=== PATIENT | female | born 1985 | race Caucasian/White ===

== ENCOUNTER 2019-10-26 01:50 | Inpatient (IN) | payer BC ==
[2019-10-26] MEDS ORDERED: CARBOPROST TROMETHAMINE 250 MCG/ML 1 ML AMP IM PRN (02:09)
[2019-10-26] MEDS ORDERED: OXYTOCIN 10 UNIT/ML 1 ML VIAL IM PRN (02:09)
[2019-10-26] MEDS ORDERED: LIDOCAINE 0.5% (PF) 5 MG/ML (50 ML SDV) SQ PRN (02:09)
[2019-10-26] MEDS ORDERED: METHYLERGONOVINE 0.2 MG/ML 1 ML AMP IM PRN (02:09)
[2019-10-26] MEDS ORDERED: TERBUTALINE 1 MG/ML VIAL SQ PRN (02:09)
[2019-10-26] MEDS ORDERED: LACTATED RINGERS 1,000 ML IV SCH (02:15)
[2019-10-26] MEDS ORDERED: OXYTOCIN 30 UNITS/500 ML NS 30 UNIT in SALINE 1 500ML.BAG IV SCH (02:15)
[2019-10-26 02:16] LABS: Basophils # (A) 0.1 k/uL (0-0.2); Basophils % (A) 0 %; Eosinophils # (A) 0.2 k/uL (0-0.7); Eosinophils % (A) 1 %; HCT 44.6 % (34.0-46.0); HGB 14.7 gm/dL (11.4-16.0); Lymphocytes # (A) 2.9 k/uL (1.0-4.8); Lymphocytes % (A) 17 %; MCHC 32.9 g/dL (31.0-37.0); MCV 88.2 fL (80.0-100.0); Mean Platelet Volume 7.1; Monocytes # (A) 0.7 k/uL (0-1.0); Monocytes % (A) 4 %; Neutrophils # (A) 12.6 k/uL (1.3-7.7); Neutrophils % (A) 75 %; Platelet Count 266 k/uL (150-450); RBC 5.05 m/uL (3.80-5.40); RDW 13.6 % (11.5-15.5); WBC 16.8 k/uL (3.8-10.6)
[2019-10-26] MEDS ORDERED: ROPIVACAINE 5MG/ML 20ML VIAL ONE (02:23)
[2019-10-26] MEDS ORDERED: fentaNYL (PF) 50 MCG/ML 5 ML AMP ONE (02:23)
[2019-10-26] MEDS ORDERED: SODIUM CHLORIDE 0.9% 100 ML BAG ONE (02:23)
[2019-10-26] MEDS: LACTATED RINGERS 1,000 ML IV SCH ×4 (02:30→17:54)
--- NOTE | 2019-10-26 02:30 | P.HPOB ---
History of Present Illness H&P Date: 10/26/19 Chief Complaint: IUP at 39 and 4/sevenths weeks, active labor This is a pleasant 33-year-old 1 para 0 at 39-4/7 weeks that presents to labor and delivery with complaints of regular painful contractions. Patient states she contracted most of the evening they became more uncomfortable and regular therefore she presented to the hospital. Patient was seen in the office on 10/19/2019 it was noted to be 1/70/-3. Patient denied vaginal bleeding or loss of fluid this evening. Patient does note good movement. On blood work she has a blood type of A+, rubella status immune, RPR nonreactive, hepatitis B surface antigen negative, HIV negative, she did pass her one-hour Glucola, and group beta strep culture was negative. Patient's been receiving routine care since the first trimester and this has been essentially uncomplicated. Review of Systems Constitutional: Denies fatigue, Denies fever Ears, nose, mouth and throat: Denies headache Cardiovascular: Reports leg edema Respiratory: Denies dyspnea Gastrointestinal: Denies constipation, Denies diarrhea, Denies nausea, Denies vomiting Genitourinary: Reports Past Medical History Past Medical History: Hypertension History of Any Multi-Drug Resistant Organisms: None Reported Past Surgical History: No Surgical Hx Reported Past Anesthesia/Blood Transfusion Reactions: No Reported Reaction Past Psychological History: No Psychological Hx Reported Smoking Status: Never smoker Past Alcohol Use History: None Reported Past Drug Use History: None Reported - Past Family History Father Family Medical History: Hypertension, Myocardial Infarction ([place]) Medications and Allergies Home Medications Medication Instructions Recorded Confirmed Type Pnv No.95/Ferrous Fum/Folic AC 1 tab PO ONCE 10/26/19 10/26/19 History [ Multivitamin Tablet] metFORMIN HCL [Glucophage] 1 tab PO BID 10/26/19 10/26/19 History Allergies Allergy/AdvReac Type Severity Reaction Status Date / Time penicillin G Allergy Rash/Hives Verified 10/26/19 02:19 Exam Osteopathic Statement: *. No significant issues noted on an osteopathic str uctural exam other than those noted in the History and Physical/Consult. 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 Patient is noted to have nonlabored breathing, heart has regular rate and rhythm, abdomen is gravid, on cervical exam she is 3/90/-2 with a bulging bag of water. heart tones are noted to be category 2 with moderate variability, she is lennie every 3-4 minutes. Results Result Diagrams: 10/26/19 02:10 Abnormal Lab Results - Last 24 Hours (Table) 10/26/19 Range/Units 02:10 WBC 16.8 H (3.8-10.6) k/uL Neutrophils # 12.6 H (1.3-7.7) k/uL Assessment and Plan (1) Term Current Visit: Yes Status: Acute Code(s): Z34.90 - ENCNTR FOR SUPRVSN OF NORMAL , UNSP, UNSP TRIMESTER SNOMED Code(s): 82763714 (2) Active labor Current Visit: Yes Status: Acute Code(s): FND6506 - SNOMED Code(s): 260157628 Plan: Patient is admitted to labor and delivery for expectant management. Patient does desire epidural and anesthesia is notified. We will anticipate spontaneous vaginal delivery later today.
[2019-10-26] MEDS ORDERED: CITRIC ACID-SODIUM CITRATE 15 ML CUP PO ONE (08:53)
[2019-10-26] MEDS ORDERED: SIMETHICONE 80 MG CHEWABLE PO PRN (08:57)
[2019-10-26] MEDS ORDERED: ZOLPIDEM 5 MG TAB PO PRN (08:57)
[2019-10-26] MEDS ORDERED: diphenhydrAMINE 50 MG/ML 1 ML VIAL IVP PRN ×2 (08:57)
[2019-10-26] MEDS ORDERED: NALOXONE 0.4 MG/ML 1 ML VIAL IV PRN (08:57)
[2019-10-26] MEDS ORDERED: diphenhydrAMINE 50 MG CAP PO PRN (08:57)
[2019-10-26] MEDS ORDERED: METOCLOPRAMIDE 5 MG/ML 2 ML VIAL IVP PRN (08:57)
[2019-10-26] MEDS ORDERED: ACETAMINOPHEN TAB 325 MG TAB PO PRN (08:57)
[2019-10-26] MEDS ORDERED: diphenhydrAMINE 25 MG CAP PO PRN (08:57)
[2019-10-26] MEDS ORDERED: HYDROcodone/APAP 5-325MG 1 EACH TAB PO PRN (08:57)
[2019-10-26] MEDS ORDERED: ONDANSETRON 4 MG/2 ML VIAL IVP PRN (08:57)
[2019-10-26] MEDS ORDERED: OXYTOCIN 20 UNITS/1000 ML NS 1,000 ML IV SCH (09:00)
[2019-10-26] MEDS ORDERED: ceFAZolin 3 GM in SODIUM CHLORIDE 0.9% 100 ML IVPB ONE (09:00)
[2019-10-26] MEDS ORDERED: PRENATAL VIT-IRON-FOLIC ACID 1 EACH CAP PO ONE (09:00)
[2019-10-26] MEDS ORDERED: DEXAMETHASONE SOD PHOS (MDV) 100 MG/10 ML VIAL ONE (09:08)
[2019-10-26] MEDS ORDERED: OXYTOCIN 10 UNIT/ML 1 ML VIAL ONE (09:08)
[2019-10-26] MEDS ORDERED: ONDANSETRON 4 MG/2 ML VIAL ONE (09:08)
[2019-10-26] MEDS ORDERED: MORPHINE SULFATE (PF) 0.3 MG/0.3 ML SYR ONE (09:08)
[2019-10-26] MEDS ORDERED: ACETAMINOPHEN IV (For NPO) 1,000 MG in EMPTY BAG 1 BAG IVPB ONE (09:15)
[2019-10-26] MEDS ORDERED: IBUPROFEN IV 800 MG in SODIUM CHLORIDE 0.9% 250 ML IV ONE (09:15)
--- NOTE | 2019-10-26 10:13 | P.OP ---
Date of Procedure: 10/26/19 Preoperative Diagnosis: IUP at 39 and 4/sevenths weeks, arrest of descent Postoperative Diagnosis: Same Procedure(s) Performed: Primary low transverse section Anesthesia: epidural Surgeon: Kristina Collins Medical Assistant Cardiology #1: Rajesh Arce Estimated Blood Loss (ml): 800 IV fluids (ml): 1,400 Urine output (ml): 30 Pathology: none sent Condition: stable Disposition: observation Indications for Procedure: This pleasant 33-year-old 1 para 0 at 39-4/7 weeks presented to labor and delivery last evening with complaints of regular shunt contractions. Patient states contractions started earlier in the evening. Patient denied loss of fluid at that time. Patient was admitted and noted to be 2-3 cm dilated. Patient soon requested epidural placement which was placed with anesthesia Department without difficulty. Patient progressed to complete began pushing minimal descent of the head was noted with suspicion of LGA. Patient was counseled on secondary to arrest of descent. Patient stated understanding, consents were signed patient was taken back to the operating suite. Operative Findings: Normal uterus tubes and ovaries were appreciated. Male infant in occiput transverse presentation, weight of 7 lbs. 4 oz. delivered at 924, Apgars of 8 and 9 at one and 5 minutes respectively. Description of Procedure: Patient was taken back to the operating suite where epidural anesthesia was found to be adequate. She was then prepped and draped in normal sterile fashion in the dorsal supine position. A Pfannenstiel skin incision was made with the scalpel and carried through the underlying layer of fascia. The fascia was then incised in the midline the incision was then extended laterally. The superior aspect of the fascial incision was then grasped with [place] clamps, elevated and underlying rectus muscles dissected off sharply. Attention was then turned the inferior aspect of the fascial incision which was grasped moses clamps, elevated and underlying rectus muscles dissected off sharply once again. The rectus muscles were then in the midline the peritoneum was identified and entered. A bladder blade was then inserted into the pelvis the vesicouterine peritoneum was identified and the bladder flap was then created. A scalpel was used to make a hysterotomy incision the was then delivered without difficulty in occiput transverse presentation. The umbilical cord was then doubly clamped and cut and handed off to awaiting RN. The placenta was then delivered manually and the uterus was cleared of all clots and debris. The uterus then delivered from the abdomen. The uterine incision was then closed with 0 Vicryl in a running locked fashion, second layer of suture was used to obtain hemostasis. Both corners were felt to be hemostatic small amount of bleeding was noted in the midline portion of the hysterotomy incision therefore an [id number] suture was used to obtain hemostasis. The uterus was then returned to the abdomen the hysterotomy incision was inspected a small amount of oozing was noted from the right corner therefore FloSeal was placed after 2 minutes and was inspected hemostasis was appreciated. The peritoneum was then loosely approximated the rectus muscles along with the fascial incision were inspected hemostasis was noted. The fascial incision was then closed with 0 Vicryl in a running fashion from one lateral edge the midline and the other lateral edge the midline. The subcutaneous tissue was then irrigated hemostasis was appreciated, and it was closed with 3-0 Vicryl. The skin was then closed with 4-0 Vicryl in a subcuticular fashion. All counts were correct 2 patient tolerated procedure well and was taken back to her room in stable condition.
[2019-10-26] MEDS: SENNOSIDES-DOCUSATE SODIUM 1 EACH TAB PO SCH (22:22)
[2019-10-27 07:59] LABS: Basophils % (A) 0 %; Eosinophils # (A) 0.1 k/uL (0-0.7); Eosinophils % (A) 0 %; HCT 35.9 % (34.0-46.0); Lymphocytes # (A) 2.1 k/uL (1.0-4.8); Lymphocytes % (A) 13 %; MCHC 32.5 g/dL (31.0-37.0); MCV 89.4 fL (80.0-100.0); Monocytes # (A) 0.9 k/uL (0-1.0); Monocytes % (A) 5 %; Neutrophils % (A) 80 %; Platelet Count 187 k/uL (150-450); RBC 4.01 m/uL (3.80-5.40); RDW 13.7 % (11.5-15.5); WBC 16.2 k/uL (3.8-10.6)
[2019-10-27 08:01] LABS: HGB 11.7 gm/dL (11.4-16.0)
[2019-10-27] MEDS: IBUPROFEN 600 MG TAB PO PRN ×3 (08:15→23:22)
--- NOTE | 2019-10-27 08:26 | P.PNOBGPC ---
Subjective - Subjective Principal diagnosis: POD 1 LTCS Interval history: Patient is doing well status post primary for arrest of descent. She is ambulating to the bathroom without difficulty. She has had a spontaneous void. She states her pain is moderately controlled. She is breast-feeding with some difficulty. She notes minimal lochia. Patient reports: Reports appetite normal, Reports voiding normally, Reports pain well controlled, Reports ambulating normally : doing well Objective - Vital Signs Latest vital signs: Vital Signs Temp Pulse Resp BP Pulse Ox 10/27/19 04:00 98.1 F 92 18 112/62 10/27/19 00:00 98.6 F 97 18 119/64 10/26/19 20:00 98.3 F 84 16 118/70 10/26/19 16:25 99.0 F 87 16 138/73 96 10/26/19 15:51 99.0 F 87 16 138/73 96 10/26/19 12:00 97.5 F L 75 18 129/60 98 10/26/19 11:30 97.7 F 83 18 128/60 98 10/26/19 11:00 98.4 F 83 18 128/58 95 10/26/19 10:45 98.9 F 80 18 135/61 95 10/26/19 10:30 97 145/65 96 10/26/19 10:15 98.7 F 95 16 141/63 95 10/26/19 10:00 99.3 F 95 18 150/63 98 Intake and Output 10/26/19 10/27/19 10/27/19 22:59 06:59 14:59 Output Total 900 800 Balance -900 -800 Output: Urine 900 800 Other: # Voids 1 - Exam Extremities: Present: edema Abdomen: Present: normal appearance Incision: Present: normal, dry, intact Uterus: Present: normal, firm - Labs Labs: Abnormal Lab Results - Last 24 Hours (Table) 10/27/19 Range/Units 07:30 WBC 16.2 H (3.8-10.6) k/uL Neutrophils # 13.0 H (1.3-7.7) k/uL Assessment and Plan (1) Term Current Visit: Yes Status: Acute Code(s): Z34.90 - ENCNTR FOR SUPRVSN OF NORMAL , UNSP, UNSP TRIMESTER SNOMED Code(s): 73620177 (2) Active labor Current Visit: Yes Status: Acute Code(s): CMN8378 - SNOMED Code(s): 737576797 (3) Arrest of descent, delivered, current hospitalization Current Visit: Yes Status: Acute Code(s): O62.1 - SECONDARY UTERINE INERTIA SNOMED Code(s): 40545001 (4) S/P section Current Visit: Yes Status: Acute Code(s): Z98.891 - HISTORY OF UTERINE SCAR FROM PREVIOUS SURGERY SNOMED Code(s): 840755060 Plan: Patient is doing well postoperatively. We will continue routine post operative care. And anticipate discharge home tomorrow.
[2019-10-27] MEDS: SENNOSIDES-DOCUSATE SODIUM 1 EACH TAB PO SCH ×2 (11:18→19:51)
[2019-10-27 23:50] VITALS: TEMP 98.1
[2019-10-28 07:42] VITALS: BP 147/85; PULSE 86; RESP 16
[2019-10-28] MEDS: IBUPROFEN 600 MG TAB PO PRN (07:55)
[2019-10-28] MEDS: SENNOSIDES-DOCUSATE SODIUM 1 EACH TAB PO SCH (07:56)
--- NOTE | 2019-10-28 09:00 | P.DS ---
Providers Date of admission: 10/26/19 01:50 Expected date of discharge: 10/28/19 Attending physician: Kristina Collins Primary care physician: Stated None - Discharge Diagnosis(es) (1) Term Current Visit: Yes Status: Acute (2) Active labor Current Visit: Yes Status: Acute (3) Arrest of descent, delivered, current hospitalization Current Visit: Yes Status: Acute (4) S/P section Current Visit: Yes Status: Acute Hospital Course: This is a pleasant 33-year-old 1 para 0 at 39-4/7 weeks that presented to labor and delivery in active labor. Patient had essentially uncomplicated care with myself. For further details on the history and physical please see the dictated history and physical. Patient was admitted to labor and delivery and made slow progress through labor. Patient eventually became uncomfortable requesting epidural placement epidural was placed without difficulty by the anesthesia department. After epidural placement was completed amniotomy was performed and clear fluid was obtained. Patient did progressed to complete began pushing and minimal descent was noted with increasing But therefore the decision was made to proceed with primary secondary to arrest of descent. was performed without difficulty for further details on the please see the operative report. Male infant in occiput transverse presentation with a weight of 7 lbs. 4 oz. was delivered at 924, Apgars of 8 and 9 at one and 5 minutes respectively. Patient's postoperative course is been essentially uneventful. On this postoperative day #2 she is ambulating and voiding without difficulty. She is tolerating a regular diet without nausea or vomiting. She states her pain is well-controlled with oral Leonore/ibuprofen. She does wish discharge home on this postoperative day #2. Patient Condition at Discharge: Good Plan - Discharge Summary New Discharge Prescriptions: No Action metFORMIN HCL [Glucophage] 1 tab PO BID Pnv No.95/Ferrous Fum/Folic AC [ Multivitamin Tablet] 1 tab PO ONCE Discharge Medication List Pnv No.95/Ferrous Fum/Folic AC [ Multivitamin Tablet] 1 tab PO ONCE 10/26/19 [History] metFORMIN HCL [Glucophage] 1 tab PO BID 10/26/19 [History] Follow up Appointment(s)/Referral(s): Kristina Collins DO [Doctor of Osteopathic Medicine] - 2 Weeks Patient Instructions/Handouts: (DC), (GEN) Discharge Disposition: HOME SELF-CARE
== END 2019-10-28 11:30 | disposition home or self-care (01) | DRG 788 ==
LOC: 4FBP 01:50
PROVIDERS: ADMIT Obstetrics & Gynecology Obstetrics; ATTEND Obstetrics & Gynecology Obstetrics
PROC: 3E0R3BZ Introduction of Anesthetic Agent into Spinal Canal, Percutaneous Approach (ICD-10-PCS; principal; 2019-10-26 08:54)
PROC: 00HU33Z Insertion of Infusion Device into Spinal Canal, Percutaneous Approach (ICD-10-PCS; principal; 2019-10-26 08:54)
PROC: 10D00Z1 Extraction of Products of Conception, Low, Open Approach (ICD-10-PCS; principal; 2019-10-26 08:54)
DX: O99.62 Diseases of the digestive system complicating childbirth (principal); K21.9 Gastro-esophageal reflux disease without esophagitis; O62.1 Secondary uterine inertia; Z37.0 Single live birth; Z3A.39 39 weeks gestation of pregnancy; Z86.79 Personal history of other diseases of the circulatory system; Z79.84 Long term (current) use of oral hypoglycemic drugs; Z88.0 Allergy status to penicillin; Z82.49 Family history of ischemic heart disease and other diseases of the circulatory system
CPT/HCPCS: 85025; 86850; 86900; 86901

== ENCOUNTER 2021-06-20 07:49 | Inpatient (IN) | payer BC ==
[2021-06-19 12:33] VITALS: BMI 41.5
[2021-06-20] MEDS ORDERED: LACTATED RINGERS 1,000 ML IV ONE (10:27)
[2021-06-20] MEDS ORDERED: CITRIC ACID-SODIUM CITRATE 15 ML CUP PO ONE (10:27)
[2021-06-20 10:44] LABS: Basophils % (A) 0 %; Eosinophils # (A) 0.2 k/uL (0-0.7); Eosinophils % (A) 1 %; HCT 36.6 % (34.0-46.0); HGB 12.5 gm/dL (11.4-16.0); Lymphocytes # (A) 2.1 k/uL (1.0-4.8); Lymphocytes % (A) 17 %; MCH 28.8 pg (25.0-35.0); MCHC 34.1 g/dL (31.0-37.0); MCV 84.6 fL (80.0-100.0); Mean Platelet Volume 7.3; Monocytes # (A) 0.5 k/uL (0-1.0); Monocytes % (A) 4 %; Neutrophils # (A) 9.4 k/uL (1.3-7.7); Neutrophils % (A) 75 %; Platelet Count 311 k/uL (150-450); RBC 4.33 m/uL (3.80-5.40); RDW 13.8 % (11.5-15.5); WBC 12.5 k/uL (3.8-10.6)
[2021-06-20] MEDS ORDERED: CLINDAMYCIN 900 MG in DEXTROSE 5% IN WATER 50 ML IVPB ONE ×2 (10:45)
[2021-06-20] MEDS ORDERED: GENTAMICIN 420 MG in SODIUM CHLORIDE 0.9% 100 ML IVPB ONE (10:45)
[2021-06-20] MEDS ORDERED: NALBUPHINE 10 MG/ML (1 ML AMP) ONE (12:01)
[2021-06-20] MEDS ORDERED: ONDANSETRON 4 MG/2 ML VIAL ONE (12:01)
[2021-06-20] MEDS ORDERED: MORPHINE SULFATE (PF) 0.3 MG/0.3 ML SYR ONE (12:01)
[2021-06-20] MEDS ORDERED: KETOROLAC 15 MG/ML 1 ML VIAL ONE (12:01)
[2021-06-20] MEDS ORDERED: OXYTOCIN 30 UNITS/500 ML NS BAG IV ONE (12:01)
[2021-06-20] MEDS ORDERED: NALOXONE 0.4 MG/ML 1 ML VIAL IV PRN ×2 (12:32→13:46)
[2021-06-20] MEDS ORDERED: MORPHINE SULFATE 2 MG/ML SYRINGE IVP PRN (12:32)
[2021-06-20] MEDS ORDERED: ONDANSETRON 4 MG/2 ML VIAL IVP PRN ×2 (12:32→13:46)
[2021-06-20] MEDS ORDERED: diphenhydrAMINE 50 MG/ML 1 ML VIAL IVP PRN ×3 (12:32→13:46)
--- NOTE | 2021-06-20 13:03 | P.HPOB ---
History of Present Illness H&P Date: 06/20/21 Chief Complaint: IUP at 39 and 5, suspected LGA, history of 1 This is a 35-year-old at 39-5/7 weeks that presents for repeat section with tubal ligation. Patient has a history of a 1, she did desire trial of labor after but after last ultrasound revealing weight greater than 8 pounds she elected repeat . She also desires tubal ligation as she is done with family planning. Patient has been receiving routine care which has been essentially uncomplicated. Patient has a known blood type of A+, rubella status immune, B surface antigen negative, HIV negative, RPR is nonreactive, group beta strep culture is negative. Review of Systems Constitutional: Denies chills, Denies fatigue, Denies fever Ears, nose, mouth and throat: Denies headache Cardiovascular: Reports leg edema Respiratory: Denies dyspnea Gastrointestinal: Denies constipation, Denies diarrhea, Denies nausea, Denies vomiting Genitourinary: Reports Past Medical History Past Medical History: Hypertension Additional Past Medical History / Comment(s): PCOS, take metformin History of Any Multi-Drug Resistant Organisms: None Reported Past Surgical History: Section Past Anesthesia/Blood Transfusion Reactions: No Reported Reaction Past Psychological History: No Psychological Hx Reported Smoking Status: Never smoker Past Alcohol Use History: None Reported Additional Past Alcohol Use History / Comment(s): NO DURING Past Drug Use History: None Reported - Past Family History Father Family Medical History: Hypertension, Myocardial Infarction ([place]) Medications and Allergies Home Medications Medication Instructions Recorded Confirmed Type Pnv No.95/Ferrous Fum/Folic AC 1 tab PO ONCE 10/26/19 06/20/21 History [ Multivitamin Tablet] metFORMIN HCL [Glucophage] 1 tab PO BID 10/26/19 06/20/21 History Allergies Allergy/AdvReac Type Severity Reaction Status Date / Time penicillin G Allergy Rash/Hives Verified 06/19/21 12:16 Exam Osteopathic Statement: *. No significant issues noted on an osteopathic structural exam other than those noted in the History and Physical/Consult. 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 Results Result Diagrams: 06/20/21 10:30 Abnormal Lab Results - Last 24 Hours (Table) 06/20/21 Range/Units 10:30 WBC 12.5 H (3.8-10.6) k/uL Neutrophils # 9.4 H (1.3-7.7) k/uL Assessment and Plan (1) H/O section Current Visit: Yes Status: Acute Code(s): Z98.891 - HISTORY OF UTERINE SCAR FROM PREVIOUS SURGERY SNOMED Code(s): 556232926 (2) Term Current Visit: No Status: Acute Code(s): Z34.90 - ENCNTR FOR SUPRVSN OF NORMAL , UNSP, UNSP TRIMESTER SNOMED Code(s): 18047864 Plan: 35-year-old at 39 and 5 presents for repeat section with tubal ligation. Patient states she is done with childbearing. Patient wishes permanent sterilization. Patient is admitted to labor and delivery for scheduled repeat section with tubal ligation. Patient denies concerns or questions. Patient was taken back to the operating suite.
--- NOTE | 2021-06-20 13:08 | P.OP ---
Date of Procedure: 06/20/21 Preoperative Diagnosis: IUP at 39 and 5, suspected LGA, history of 1, desires repeat, family status complete Postoperative Diagnosis: Same plus extensive scarring noted from the uterus to the anterior abdominal wall, unable to exteriorize the uterus secondary to scarring, ovaries unable to be visualized. Viable male delivered at 1225, weight of 8 lbs. 14 oz., Apgars of 9 and 9 at one and 5 minutes respectively. Procedure(s) Performed: Repeat section Anesthesia: spinal Surgeon: Kristina Collins Cpo #1: Ban Coates Estimated Blood Loss (ml): 900 IV fluids (ml): 900 Urine output (ml): 150 Pathology: none sent Condition: stable Disposition: observation Indications for Procedure: History of 1 desires repeat Operative Findings: Significant uterine scarring from mid uterus to anterior abdominal wall, unable to exteriorize the uterus to perform tubal ligation. Ovaries not visualized secondary to scarring to anterior abdominal wall, viable male infant delivered at 1225, weight of 8 lbs. 14 oz., Apgars of 99 at one and 5 minutes respect daily. Description of Procedure: Patient was taken back to the operative suite where spinal anesthesia was found be adequate by the anesthesia department. She was then prepped and draped in normal sterile fashion in the dorsal supine position. A Flood catheter was placed under sterile technique prior to prepping. A Pfannenstiel skin incision was made with the scalpel and carried through the underlying layer of fascia. Fascia was incised in the midline and the incision was extended laterally. The superior aspect the fascial incision was then grasped moses clamps, elevated and underlying rectus muscles dissected off sharply. The inferior aspect of the fascial incision was then grasped moses clamps, elevated and the underlying rectus muscles dissected off sharply once again. The rectus muscles were in the midline the peritoneum was identified and entered. The uterus was noted to be significantly scarred to the right side of the anterior abdominal wall, thick bladder adhesions were appreciated. The hysterotomy incision was performed with the scalpel and the infant was encountered in a vertex presentation and delivered in the usual fashion. The umbo cord was doubly clamped and cut and handed off to awaiting RN. The placenta was then delivered manually and the uterus was cleared of all clots and debris. The uterus remained in situ secondary to adhesions. The uterine incision was closed with 0 Vicryl in a running locked fashion. A second imbricating suture was performed for hemostasis. Bleeding was noted at the right-sided adhesion site therefore 2 [id number] sutures of 0 Vicryl were used to obtain hemostasis. The hysterotomy incision was inspected found to be hemostatic. Surgicel powder was placed along the hysterotomy incision and adhesion site. Interceed was placed over the Surgicel powder. The peritoneum was then loosely reapproximated over the rectus muscles were inspected found to be hemostatic. The fascia was closed with 0 Vicryl in a running fashion from one lateral edge the midline and the other lateral edge the midline. The subcutaneous tissue was irrigated found to be hemostatic and closed with 3-0 Vicryl in a running fashion. The skin was then closed with 4-0 Vicryl in a subarticular fashion. Steri-Strips and sterile dressing were applied. All counts were noted to be correct 2. Patient and tolerated procedure well and are resting comfortably.
[2021-06-20] MEDS ORDERED: METOCLOPRAMIDE 5 MG/ML 2 ML VIAL IVP PRN (13:46)
[2021-06-20] MEDS ORDERED: SIMETHICONE 80 MG CHEWABLE PO PRN (13:46)
[2021-06-20] MEDS ORDERED: diphenhydrAMINE 50 MG CAP PO PRN (13:46)
[2021-06-20] MEDS ORDERED: ZOLPIDEM 5 MG TAB PO PRN (13:46)
[2021-06-20] MEDS ORDERED: diphenhydrAMINE 25 MG CAP PO PRN (13:46)
[2021-06-20] MEDS ORDERED: OXYTOCIN 30 UNITS/500 ML NS 30 UNIT in SALINE 1 500ML.BAG IV SCH (14:00)
[2021-06-20] MEDS: LACTATED RINGERS 1,000 ML IV SCH (15:12)
[2021-06-20] MEDS: ACETAMINOPHEN TAB 500 MG TAB PO SCH (16:42)
[2021-06-20] MEDS ORDERED: ACETAMINOPHEN IV (For NPO) 1,000 MG in EMPTY BAG 1 BAG IVPB PRN (17:00)
[2021-06-20] MEDS: IBUPROFEN 600 MG TAB PO SCH (18:45)
[2021-06-20] MEDS ORDERED: IBUPROFEN IV 800 MG in SODIUM CHLORIDE 0.9% 250 ML IV PRN (20:00)
[2021-06-20] MEDS: SENNOSIDES-DOCUSATE SODIUM 1 EACH TAB PO SCH (20:23)
[2021-06-21] MEDS: ACETAMINOPHEN TAB 500 MG TAB PO SCH ×4 (00:38→23:34)
[2021-06-21] MEDS: LACTATED RINGERS 1,000 ML IV SCH ×2 (01:37→06:19)
[2021-06-21] MEDS: IBUPROFEN 600 MG TAB PO SCH ×3 (04:05→20:55)
[2021-06-21] MEDS: SENNOSIDES-DOCUSATE SODIUM 1 EACH TAB PO SCH ×2 (08:42→20:55)
[2021-06-21 09:21] LABS: Basophils % (A) 0 %; Eosinophils # (A) 0.1 k/uL (0-0.7); Eosinophils % (A) 1 %; HGB 10.7 gm/dL (11.4-16.0); Lymphocytes # (A) 1.9 k/uL (1.0-4.8); Lymphocytes % (A) 12 %; MCH 28.3 pg (25.0-35.0); MCHC 32.4 g/dL (31.0-37.0); MCV 87.5 fL (80.0-100.0); Mean Platelet Volume 7.2; Monocytes # (A) 0.7 k/uL (0-1.0); Monocytes % (A) 4 %; Neutrophils % (A) 82 %; Platelet Count 210 k/uL (150-450); RBC 3.77 m/uL (3.80-5.40); RDW 13.8 % (11.5-15.5); WBC 15.9 k/uL (3.8-10.6)
--- NOTE | 2021-06-21 10:51 | P.PNOBGPC ---
Subjective - Subjective Principal diagnosis: POD 1 RCS Interval history: Patient is doing well. 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 Pain is well-controlled. She is breast-feeding without difficulty. Her lochia is minimal. Patient reports: Reports appetite normal, Reports voiding normally, Reports pain well controlled, Reports ambulating normally : doing well, nursing well Objective - Vital Signs Latest vital signs: Vital Signs Temp Pulse Resp BP Pulse Ox 06/21/21 04:00 98.6 F 65 17 102/67 98 06/21/21 00:00 98.2 F 64 17 102/66 98 06/20/21 20:25 98.2 F 68 17 106/57 98 06/20/21 19:00 17 06/20/21 17:00 16 06/20/21 15:11 15 06/20/21 15:06 66 16 118/60 97 06/20/21 14:36 76 16 119/63 99 06/20/21 14:06 69 16 114/65 98 06/20/21 13:51 67 16 108/57 98 06/20/21 13:36 68 16 113/58 98 06/20/21 13:31 15 98 06/20/21 13:21 74 15 133/56 97 06/20/21 13:09 15 99 06/20/21 13:06 97.8 F 66 15 108/57 Intake and Output 06/20/21 06/21/21 06/21/21 22:59 06:59 14:59 Intake Total 200 Output Total 610 800 Balance -410 -800 Intake: Oral 200 Output: Urine 610 800 Uretheral (Flood) 180 Other: # Voids 1 - Exam Extremities: Present: normal, edema Abdomen: Present: normal appearance Incision: Present: normal, intact Uterus: Present: normal, firm - Labs Labs: Abnormal Lab Results - Last 24 Hours (Table) 06/21/21 Range/Units 08:58 WBC 15.9 H (3.8-10.6) k/uL RBC 3.77 L (3.80-5.40) m/uL Hgb 10.7 L (11.4-16.0) gm/dL Hct 33.0 L (34.0-46.0) % Neutrophils # 13.0 H (1.3-7.7) k/uL Assessment and Plan (1) H/O section Current Visit: Yes Status: Acute Code(s): Z98.891 - HISTORY OF UTERINE SCAR FROM PREVIOUS SURGERY SNOMED Code(s): 160159247 (2) Term Current Visit: No Status: Acute Code(s): Z34.90 - ENCNTR FOR SUPRVSN OF NORMAL , UNSP, UNSP TRIMESTER SNOMED Code(s): 81084992 (3) S/P section Current Visit: No Status: Acute Code(s): Z98.891 - HISTORY OF UTERINE SCAR FROM PREVIOUS SURGERY SNOMED Code(s): 019216828 Plan: Patient is doing well postoperatively. Plan to continue routine postoperative care and anticipate discharge home tomorrow.
--- NOTE | 2021-06-21 11:26 | P.PN ---
Progress Note - Text 06/21/21 632am 55-year-old female status post with spinal Duramorph. Patient seen and evaluated for postop pain control, she has a VAS of 1 at rest. No complains of nausea vomiting or pruritus. Patient doing well
[2021-06-21 13:36] VITALS: RESP 16
[2021-06-22] MEDS: IBUPROFEN 600 MG TAB PO SCH ×2 (04:13→08:07)
[2021-06-22] MEDS: SENNOSIDES-DOCUSATE SODIUM 1 EACH TAB PO SCH (08:07)
[2021-06-22 09:16] VITALS: BP 118/86; PULSE 71; TEMP 97.6
--- NOTE | 2021-06-22 10:33 | P.DS ---
Providers Date of admission: 06/20/21 09:54 Expected date of discharge: 06/22/21 Attending physician: Kristina Collins Primary care physician: Stated None - Discharge Diagnosis(es) (1) H/O section Current Visit: Yes Status: Acute (2) Term Current Visit: No Status: Acute (3) S/P section Current Visit: No Status: Acute Hospital Course: This is a 35-year-old G2 now P2 that presented to labor and delivery on 06/20 for planned repeat section. Patient had a prior for arrest of labor. Patient had initially attempted trial of labor after but decided to proceed with repeat section after estimated weight noted a larger weight and her first . Patient was admitted repeat was performed without difficulty. Significant anterior wall scar tissue was appreciated. Patient did initially wanted tubal ligation this was a unable to be performed secondary to scar tissue. For full details on the please see the operative report. Patient delivered a viable male at 1225 on 06/20, weight of 8 lbs. 14 oz., Apgars of 9 and 9 at one and 5 minutes respectively. Patient's course has been uneventful. On this postoperative day #2 she is ambulating and voiding without difficulty. She is tolerating a regular diet without nausea or vomiting. She states her lochia is minimal. She is feeling well and would like discharge home. Plan - Discharge Summary Discharge Rx Participant: Yes New Discharge Prescriptions: No Action metFORMIN HCL [Glucophage] 1 tab PO BID Pnv No.95/Ferrous Fum/Folic AC [ Multivitamin Tablet] 1 tab PO ONCE Discharge Medication List Pnv No.95/Ferrous Fum/Folic AC [ Multivitamin Tablet] 1 tab PO ONCE 10/26/19 [History] metFORMIN HCL [Glucophage] 1 tab PO BID 10/26/19 [History] Follow up Appointment(s)/Referral(s): Kristina Collins DO [Doctor of Osteopathic Medicine] - 2 Weeks Patient Instructions/Handouts: (DC), (GEN) Discharge Disposition: HOME SELF-CARE
== END 2021-06-22 10:45 | disposition home or self-care (01) | DRG 785 ==
LOC: 4FBP 09:54
PROVIDERS: ADMIT Obstetrics & Gynecology Obstetrics; ATTEND Obstetrics & Gynecology Obstetrics
PROC: 0UB70ZZ Excision of Bilateral Fallopian Tubes, Open Approach (ICD-10-PCS; 2021-06-20)
PROC: 0DNW0ZZ Release Peritoneum, Open Approach (ICD-10-PCS; 2021-06-20)
PROC: 10D00Z1 Extraction of Products of Conception, Low, Open Approach (ICD-10-PCS; principal; 2021-06-20 12:00)
DX: O34.211 Maternal care for low transverse scar from previous cesarean delivery (principal); O99.892 Other specified diseases and conditions complicating childbirth; N73.6 Female pelvic peritoneal adhesions (postinfective); O16.4 Unspecified maternal hypertension, complicating childbirth; O99.284 Endocrine, nutritional and metabolic diseases complicating childbirth; E28.2 Polycystic ovarian syndrome; Z30.2 Encounter for sterilization; Z37.0 Single live birth; Z3A.39 39 weeks gestation of pregnancy; Z88.0 Allergy status to penicillin
CPT/HCPCS: 85025; 86850; 86900; 86901